=== PATIENT | female | born 1945 | race Caucasian/White ===

== ENCOUNTER → 2017-08-20 | Outpatient (CLI) | payer MEDICARE ==
--- NOTE | 2017-08-20 09:44 | Diagnostic Imaging Report ---
PROCEDURE: X-RAY CHEST, TWO VIEWS COMPARISON: None. INDICATIONS: PRE OPERATIVE CHEST X-RAY FOR KNEE REPLACEMENT FINDINGS: LUNGS: No consolidations or edema. PLEURA: No effusions or pneumothorax. HEART \T\ MEDIASTINUM: The heart is within normal size-limits. Tortuous and ectatic thoracic aorta. BONES \T\ SOFT TISSUES: No acute findings. Degenerative changes of the spine. CONCLUSION: No acute thoracic abnormality. Osvaldo Holland D.O. Dictated by: Osvaldo Holland D.O. on 08/20/2017 at 9:52 Electronically approved by: Osvaldo Holland D.O. on 08/20/2017 at 9:52
== END ==
LOC: RAD 08:47
DX: Z01.818 Encounter for other preprocedural examination (principal)
CPT/HCPCS: 71020; 93005